=== PATIENT | female | born 1990 | race Caucasian/White ===

== ENCOUNTER 2017-02-05 17:01 | Emergency (ER) | payer BC ==
[2017-02-05] MEDS ORDERED: ACETAMINOPHEN TAB 325 MG TAB ONE (19:01)
== END 2017-02-05 20:56 | disposition home or self-care (01) ==
LOC: EC 17:01
DX: O98.813 Other maternal infectious and parasitic diseases complicating pregnancy, third trimester (principal); J06.9 Acute upper respiratory infection, unspecified; O99.89 Other specified diseases and conditions complicating pregnancy, childbirth and the puerperium; H92.03 Otalgia, bilateral; Z98.890 Other specified postprocedural states; Z83.6 Family history of other diseases of the respiratory system; Z3A.31 31 weeks gestation of pregnancy
CPT/HCPCS: 87502; 87801; 99283

== ENCOUNTER 2017-04-29 13:22 | Emergency (ER) | payer BC ==
[2017-04-29 13:29] VITALS: BP 120/80; PULSE 96; RESP 20; TEMP 98
[2017-04-29] MEDS ORDERED: DIPH,PERTUS(ACELL)TETVAC-LF 0.5 ML VIAL IM ONE (13:34)
[2017-04-29] MEDS ORDERED: TOPICAL SKIN ADHESIVE 1 EACH AMP TOPICAL ONE (13:34)
--- NOTE | 2017-04-29 13:50 | ED ---
Wound/Laceration HPI - General Chief Complaint: Wound/Laceration Stated Complaint: Hand laceration Time Seen by Provider: 04/29/17 13:29 Source: patient Mode of arrival: ambulatory Limitations: no limitations - History of Present Illness Initial Comments: 7-year-old female patient presents to the emergency department today for complaints of a laceration to the tip of her left finger. Patient reports that she was cooking when she slipped with the knife and cut the finger. Patient states that she did get the bleeding under control. She states her tetanus is not up-to-date. She states this occurred approximately 45 minutes ago. She denies any numbness or tingling to the finger. Denies any difficulty with range of motion to the finger. Patient denies any headache, neck pain, back pain , chest pain, shortness of breath, dizziness, weakness, abdominal pain, nausea, vomiting, or difficulties with bowel movements or urination. - Related Data Allergies Allergy/AdvReac Type Severity Reaction Status Date / Time ciprofloxacin [From Cipro] Allergy Unknown Verified 04/29/17 13:26 Penicillins Allergy Unknown Verified 04/29/17 13:26 Review of Systems ROS Statement: Those systems with pertinent positive or pertinent negative responses have been documented in the HPI. ROS Other: All systems not noted in ROS Statement are negative. Past Medical History Past Medical History: No Reported History History of Any Multi-Drug Resistant Organisms: None Reported Past Surgical History: Section, Cholecystectomy, Tonsillectomy Past Psychological History: Anxiety Smoking Status: Never smoker Past Alcohol Use History: None Reported Past Drug Use History: None Reported General Exam Limitations: no limitations General appearance: alert, in no apparent distress, other (This is a well- developed, well-nourished adult female patient in no acute distress. Vital signs upon presentation are temperature 98.0F, pulse 96, respirations 20, blood pressure 120/80, pulse ox 98% on room air.) Eye exam: Present: normal appearance, PERRL, EOMI. Absent: scleral icterus, conjunctival injection, periorbital swelling Respiratory exam: Present: normal lung sounds bilaterally. Absent: respiratory distress, wheezes, rales, rhonchi, stridor Cardiovascular Exam: Present: regular rate, normal rhythm, normal heart sounds. Absent: systolic murmur, diastolic murmur, rubs, gallop, clicks Extremities exam: Present: full ROM, normal capillary refill, other (1cm laceration noted to the distal tip of the left fourth digit. Skin is otherwise pink, warm, and dry. Cap refill less than 3 seconds. Radial pulse 2+ and equal bilaterally.). Absent: normal inspection, tenderness, pedal edema, joint swelling, calf tenderness Neurological exam: Present: alert, oriented X3, CN II-XII intact Psychiatric exam: Present: normal affect, normal mood Skin exam: Present: warm, dry, intact, normal color. Absent: rash Course Vital Signs 04/29/17 13:26 Temperature 98 F Pulse Rate 96 Respiratory 20 Rate Blood Pressure 120/80 O2 Sat by Pulse 98 Oximetry Procedures - Laceration Laceration #1 Consent Obtained: verbal consent Time Out Performed: Yes Indication: laceration Site: hand (Left fourth finger) Size (cm): 1 Description: linear Depth: simple, single layer Type of Sutures: other (Dermabond) Patient Tolerated Procedure: well, no complications Medical Decision Making - Medical Decision Making 27-year-old female patient presented to the emergency department today for evaluation of a laceration to the distal tip of the left fourth digit. Physical examination did reveal he once centimeter laceration, bleeding was controlled. Neurovascular status is intact. Were able to repair the laceration with Dermabond. Patient will be given a finger split for protection of the injury. She is instructed to follow-up with the primary care physician for recheck in 1-2 days. Instructed to return here immediately for any new, worsening, or concerning symptoms. Patient was offered a tetanus vaccine however she refuses at this time stating she does not want to receive anything while she is breast-feeding. Disposition Clinical Impression: Finger laceration Disposition: HOME SELF-CARE Condition: Good Instructions: Laceration (ED), Skin Adhesive Care (ED) Additional Instructions: Do not pick or pull at the Dermabond. This will dissolve on its own in 3-5 days. Follow-up with your primary care physician for recheck in 1-2 days. Return here immediately for any new, worsening, or concerning symptoms. Referrals: Carlos Marrero MD [Primary Care Provider] - 1-2 days Time of Disposition: 13:50
== END 2017-04-29 13:57 | disposition home or self-care (01) ==
LOC: EC 13:22
DX: S61.215A Laceration without foreign body of left ring finger without damage to nail, initial encounter (principal); Z88.0 Allergy status to penicillin; Z88.1 Allergy status to other antibiotic agents; W26.0XXA Contact with knife, initial encounter; Y93.G3 Activity, cooking and baking; Z53.29 Procedure and treatment not carried out because of patient's decision for other reasons
CPT/HCPCS: 12001; 99282